=== PATIENT | female | born 1990 | race Caucasian/White ===

== ENCOUNTER → 2021-03-25 13:57 | Outpatient (CLI) | payer OTHER, SELFPAY ==
--- NOTE | ~2021-03-25 | US_ITS ---
EXAMINATION: US thyroid DATE: 03/25/2021 14:18 INDICATION: Nontoxic single thyroid nodule. TECHNIQUE: Multiple ultrasound images of the thyroid were obtained. COMPARISON: None. FINDINGS: The right thyroid lobe is absent The left thyroid lobe measures 4.5 x 1.4 x 1.9 cm. In the left thyr oid lobe, there is a 9 mm solid, hypoechoic, [id number] nodule with smooth margin without echoge darrell foci (TI-RADS TR4). IMPRESSION: 1. Small thyroid nodule, likely not clinically significant. No follow-up is needed. Reviewed, dictated and finalized at location A. IMPRESSION: 1. Small thyroid nodule, likely not clinically significant. No follow-up is nee ded.
== END ==
DX: E04.1 Nontoxic single thyroid nodule (principal)
CPT/HCPCS: 76536

== ENCOUNTER → 2023-01-24 10:12 | Outpatient (CLI) | payer OTHER, SELFPAY ==
--- NOTE | ~2023-01-24 | US_ITS ---
US thyroid INDICATION: Follow-up thyroid nodule TECHNIQUE: Real-time sonographic images of the thyroid gland were obtained. COMPARISON: Ultrasound dated 03/25/2021 FINDINGS: The right lobe is surgically absent. Left lobe measures 5.3 x 1.5 x 2 cm and contains an 8 mm hypoechoic mass which is wider distal, decreased in size compared with prior examination, solid, s moothly marginated, TR 4. IMPRESSION: 1. Stable left thyroid nodule measuring 8 mm, likely benign. No follow-up indicated. Reviewed, dictated and finalized at location L. IMPRESSION: 1. Stable left thyroid nodule measuring 8 mm, likely benign. No follow-up marc cated.
== END ==
DX: E04.1 Nontoxic single thyroid nodule (principal)
CPT/HCPCS: 76536

== ENCOUNTER 2023-06-22 14:03 | Observation (INO) | payer OTHER, SELFPAY ==
--- NOTE | ~2023-06-22 | CT_ITS ---
EXAMINATION: CT brain wo con INDICATION: Left-sided numbness COMPARISON: None TECHNIQUE: Standard unenhanced head CT. The dose-length product (DLP) was 681.00 mGy-cm. The mA was a djusted according to patient size. Iterative reconstruction technique was employed. FINDINGS: No intracranial hemorrhage or abnormal mass lesion. There is a subtle area of low-attenuati on of the left basal ganglia and possibly the adjacent midbrain The ventricles are normal. No abnorma l mass effect or midline shift. The basal cisterns are patent. The orbits are normal. The paranasal s inuses, mastoids and calvarium are normal. IMPRESSION: 1. Subtle area of low attenuation of the left basal ganglia and possibly the adjacent midbrain. Altho ugh infarction a patient this age is uncommon, it would be included in the differential. Reviewed, dictated and finalized at location F. ENT SAFETY ATTENDANT IMPRESSION: 1. Subtle area of low attenuation of the left basal ganglia and possibly the ad jacent midbrain. Although infarction a patient this age is uncommon, it would b e included in the differential.
--- NOTE | ~2023-06-22 | CT_ITS ---
EXAMINATION: CTA brain carotid DATE: 06/22/2023 20:03 INDICATION: Left-sided numbness TECHNIQUE: Computed tomographic angiography (CTA) of the head was performed without and with 100 mL O mnipaque-350 intravenous contrast. CTA of the neck was performed with intravenous contrast. The dose- length product was 1089.12 mGy-cm. Maximum intensity projection and volume rendered 3D-reconstruction s were created by the technologist on a separate workstation. Automated exposure control and iterativ e reconstruction technique were employed. COMPARISON: CT from today FINDINGS: HEAD CTA: There is no intracranial hemorrhage, acute infarction, or abnormal mass lesion. The area of low-attenuation of the left basal ganglia described on earlier CT corresponds to a prominent vascula r space. The ventricles are normal. There is no abnormal mass effect or midline shift. The tripathi-white matter differentiation is normal. The basal cisterns are patent. The orbits are normal. The paranasa l sinuses, mastoids and calvarium are normal. There is no significant stenosis of the basilar artery or posterior cerebral arteries. There is no si gnificant stenosis of the intracranial internal carotid arteries or the anterior or middle cerebral a rteries. The anterior communicating artery and posterior communicating arteries are normal. There is no aneurysm. NECK CTA: There appear to be changes of right thyroidectomy. The submandibular and parotid glands are symmetric. There is no lymphadenopathy. There are no masses identified. The airway is unremarkable. The superior mediastinum is unremarkable. There are no osseous abnormalities. There is 0% stenosis of the proximal right internal carotid artery relative to normal distal artery l umen diameter (NASCET criteria). There is 0% stenosis of the proximal left internal carotid artery re lative to normal distal artery lumen diameter. IMPRESSION: 1. No acute intracranial abnormality. Normal head CTA. 2. 0% stenosis of the proximal right internal carotid artery relative to normal distal artery lumen d iameter (NASCET criteria). 3. 0% stenosis of the proximal left internal carotid artery relative to normal distal artery lumen di ameter. Reviewed, dictated and finalized at location F. MATOR AND DRAFTER IMPRESSION: 1. No acute intracranial abnormality. Normal head CTA. 2. 0% stenosis of the proximal right internal carotid artery relative to normal distal artery lumen diameter (NASCET criteria). 3. 0% stenosis of the proximal left internal carotid artery relative to normal distal artery lumen diameter.
--- NOTE | ~2023-06-22 | US_ITS ---
EXAMINATION: US venous doppler [facility] DATE: 06/22/2023 19:03 INDICATION: Left lower limb pain TECHNIQUE: Rodríguez scale images without and with compression and Doppler images of the left lower extrem ity veins were obtained. COMPARISON: None FINDINGS: The left common femoral vein, profunda femoral vein, femoral vein, popliteal vein, peroneal trunk, posterior tibial veins, and greater saphenous vein are patent. IMPRESSION: 1. Patent left lower extremity veins. No evidence of deep venous thrombosis. Reviewed, dictated and finalized at location F. ICE CLINICAL MARKETER
--- NOTE | ~2023-06-22 | MR_ITS ---
EXAMINATION: MR brain/brain stem wo/w con DATE: 06/23/2023 12:17 INDICATION: Left-sided numbness. Abnormal head CT. TECHNIQUE: Magnetic resonance imaging (MRI) of the brain and brainstem was performed without intraven ous contrast. COMPARISON: Head CT 06/22/2023 FINDINGS: There is no intracranial hemorrhage, acute infarction, or abnormal intracranial mass lesion . The ventricles are normal in size. The paranasal sinuses are clear. The orbits are normal. The mast oid air cells are normal. IMPRESSION: 1. Normal brain. Reviewed, dictated and finalized at location E. LE UI DESIGNER IMPRESSION: 1. Normal brain.
--- NOTE | ~2023-06-22 | XR_ITS ---
EXAMINATION: XR lumbar spine 2-3V DATE: 06/22/2023 17:03 INDICATION: Low back pain TECHNIQUE: Anteroposterior and lateral views of the lumbar spine, and cone-down lateral view of the l umbosacral junction were obtained. COMPARISON: None. FINDINGS: Bone alignment is normal. There is no fracture. There is mild anterior wedging of multiple lower thoracic vertebral bodies, likely physiologic. The intervertebral disc spaces are maintained. IMPRESSION: 1. No acute osseous abnormality. Reviewed, dictated and finalized at location F. GHT BRAKEMAN
[2023-06-22 14:10] VITALS: BP 135/87; PULSE 96; RESP 16; TEMP 36.4; O2SAT 100
--- NOTE | 2023-06-22 17:09 | ED.GENADULT ---
HPI - General Adult General Chief complaint: Extremity Problem,Nontraumatic Stated complaint: pain LLE, moved to [facility] Time Seen by Provider: 06/22/23 15:29 History of Present Illness HPI narrative: Randi Mckenzie is a 33 y/o female with no PMHx -she arrives today with several vague complaints, she states that she has had pain to the back of her left thigh that started 6 days ago and pain has improved some but now has a weird sensation / pain difficult to describe to her left leg and the past two days she has had lower back pain. She has woken up with left hand numbness off and on and she has to shake it off. Today she woke up with some numbness to her lips and some to her tongue/ tolerating PO She states she is 1 worried that she has a blood clot in her left leg, and she feels upset because she has been having these weird numbness/ sensation changes to the left side of her body. SHe does have a PCP that she follows up wtih - she has been on medications off and on to help her sleep at night but has not taken anything recently Denies SOB/ chest pain/ abdominal pain/ no recent fall/ trauma No focal deficits on exam Related Data Allergies Allergy/AdvReac Type Severity Reaction Status Date / Time No Known Allergies Allergy Verified 06/22/23 19:42 Review of Systems Review of Systems: CONSTITUTIONAL: Denies fever, chills, or sweats. EYES: Denies visual changes, redness, or discharge. ENT: Denies rhinorrhea, congestion, sore throat, or otalgia. CARDIOVASCULAR: Denies chest pain, palpitations, or edema. RESPIRATORY: Denies cough or dyspnea. GASTROINTESTINAL: Denies abdominal pain, nausea, vomiting, or diarrhea. GENITOURINARY: Denies dysuria or hematuria. SKIN: Denies rash or itching. MUSCULOSKELETAL: reports mid low back pain that started 2 days ago / pain to the back of her left leg NEUROLOGIC: Denies headache, reports of some periodic numbness off and on to different areas of her body and more so on the left side of her body. denies dizziness, or weakness. PSYCHIATRIC: Denies anxiety or depression. [facility] Surgical History Surgical History H/O partial thyroidectomy Family History Family History Mother Thyroid disorder Grandparent Hypertension Cancer Diabetes mellitus Depression Anxiety Cerebrovascular accident Heart problem Social History Social History Smoking status: Never smoker Second hand tobacco smoke exposure: No Alcohol intake: current Substance use: never Substance use type: does not use Lack of Transportation: No Lack of Food: Never True Current Housing: I Have Housing Concerned About Future Housing: No Difficulty Paying Gas/Electric Bills: No Difficulty Paying for Meds: No Currently Unemployed: No Education: High School Diploma/GED Living arrangements: with family Occupation/Education: occupation Exam Narrative: GENERAL: Well-appearing, well-nourished, and in no acute distress. HEAD: Normocephalic, atraumatic. EYES: PERRLA and EOMI. ENT: Nares clear, no rhinorrhea or epistaxis. Mucous membranes moist. Oropharynx without tonsillar hypertrophy exudate or other lesions. NECK: Supple. No adenopathy or masses. No carotid bruits or JVD CHEST: Clear to auscultation. No respiratory distress. No wheezes rales or rhonchi HEART: Regular rate and rhythm. No murmur heard. Normal peripheral pulses. ABDOMEN: Soft, nontender, nondistended, normal active bowel sounds. EXTREMITIES: Normal range of motion. No edema. SKIN: Warm, dry, no rash. NEURO: No focal deficits. Alert and oriented x3. PSYCH: Normal mood and affect. Course Vital Signs Vital signs: Vital Signs Temperature 36.4 C 06/22/23 14:10 Pulse Rate 96 06/22/23 14:10 Respiratory Rate 16 06/22/23 14:10 Blood Pressure 135/87 06/22/23
[2023-06-22 18:45] LABS: Basophils Percent Auto 0.4 % (0.2-1.2); Eosinophils Absolute Auto 0.1 K/mm3 (0-0.3); Eosinophils Percent Auto 1.7 % (0-4.4); Hematocrit 42.3 % (37.0-47.0); Hemoglobin 13.4 g/dL (12.0-15.0); Immature Granulocyte Absolute 0.02 K/mm3 (0.00-0.031); Immature Granulocyte Percent A 0.3 % (0-0.5); Lymphocytes Absolute Auto 1.96 K/mm3 (0.9-3.2); Lymphocytes Percent Auto 25.8 % (18.3-44.2); Mean Corpuscular HGB Conc 31.7 g/dl (32-36); Mean Corpuscular Hemoglobin 30.3 pg (26-34); Mean Corpuscular Volume 95.7 fl (80-100); Mean Platelet Volume 9.3 fl (7.4-10.4); Monocytes Absolute Auto 0.5 K/mm3 (0.1-0.6); Monocytes Percent Auto 6.7 % (2.6-8.5); Neutrophils Percent Auto 65.1 % (45.5-73.1); Platelet Count Result 316 k/mm3 (150-375); Red Blood Count 4.42 M/mm3 (4.2-5.4); Red Cell Distribution Width 11.9 % (11.5-14.5); White Blood Count 7.6 K/mm3 (4.5-10.0)
[2023-06-22 18:56] LABS: Prothrombin Time 13.1 Seconds (11.1-14.7)
[2023-06-22 18:57] LABS: Partial Thromboplastin Time 28.2 SECONDS (22.3-36.8)
[2023-06-22 19:01] LABS: Anion Gap 8 mmol/L (8-16); Blood Urea Nitrogen 11 mg/dL (7-17); Calcium 9.6 mg/dL (8.4-10.2); Carbon Dioxide 27 mmol/L (22-30); Chloride 102 mmol/L (98-107); Estimated CRCL calculation 117 ml/min; Estimated Glomerular Filt Rate > 60; Glucose 93 mg/dL (65-110); Potassium 4.2 mmol/L (3.4-5.0); Sodium 137 mmol/L (137-145)
--- NOTE | 2023-06-22 19:08 | PC.NURSE ---
Assumed care of pt from MARITO Mitchell at this time.
--- NOTE | 2023-06-22 20:55 | PM.IMHP ---
H&P: HPI History of Present Illness Date/Time: 06/22/23 20:55 Chief Complaint: NUMBNESS Narrative: 33-year-old female with no significant past medical history, obesity, presents to the emergency room with numbness and tingling sensation around her mouth this is of 1 day duration has been her usual state of health prior to this denies any speech disturbance or visual disturbance no focal motor deficit no fevers no rigors no chills no nausea no vomiting no abdominal pain no diarrhea. Preliminary workup was significant for CT of the head with area of translucent density. Patient is been placed in observation for further evaluation management and treatment. EXAMINATION: CT brain wo con ? INDICATION: Left-sided numbness ? COMPARISON: None TECHNIQUE: Standard unenhanced head CT. The dose-length product (DLP) was 681.00 mGy-cm. The mA was adjusted according to patient size. Iterative reconstruction technique was employed. ? FINDINGS: No intracranial hemorrhage or abnormal mass lesion. There is a subtle area of low-attenuation of the left basal ganglia and possibly the adjacent midbrain The ventricles are normal. No abnormal mass effect or midline shift. The basal cisterns are patent. The orbits are normal. The paranasal sinuses, mastoids and calvarium are normal. ? IMPRESSION: 1. Subtle area of low attenuation of the left basal ganglia and possibly the adjacent midbrain. Although infarction a patient this age is uncommon, it would be included in the differential. EXAMINATION: CTA brain carotid DATE: 06/22/2023 20:03 INDICATION: Left-sided numbness TECHNIQUE: Computed tomographic angiography (CTA) of the head was performed without and with 100 mL Omnipaque-350 intravenous contrast. CTA of the neck was performed with intravenous contrast. The dose-length product was 1089.12 mGy-cm. Maximum intensity projection and volume rendered 3D-reconstructions were created by the technologist on a separate workstation. Automated exposure control and iterative reconstruction technique were employed. COMPARISON: CT from today FINDINGS: HEAD CTA: There is no intracranial hemorrhage, acute infarction, or abnormal mass lesion. The area of low-attenuation of the left basal ganglia described on earlier CT corresponds to a prominent vascular space. The ventricles are normal. There is no abnormal mass effect or midline shift. The tripathi-white matter differentiation is normal. The basal cisterns are patent. The orbits are normal. The paranasal sinuses, mastoids and calvarium are normal. There is no significant stenosis of the basilar artery or posterior cerebral arteries. There is no significant stenosis of the intracranial internal carotid arteries or the anterior or middle cerebral arteries. The anterior communicating artery and posterior communicating arteries are normal. There is no aneurysm. NECK CTA: There appear to be changes of right thyroidectomy. The submandibular and parotid glands are symmetric. There is no lymphadenopathy. There are no masses identified. The airway is unremarkable. The superior mediastinum is unremarkable. There are no osseous abnormalities. There is 0% stenosis of the proximal right internal carotid artery relative to normal distal artery lumen diameter (NASCET criteria). There is 0% stenosis of the proximal left internal carotid artery relative to normal distal artery lumen diameter. IMPRESSION: 1. No acute intracranial abnormality. Normal head CTA. 2. 0% stenosis of the proximal right internal carotid artery relative to normal distal artery lumen diameter (NASCET criteria). 3. 0% stenosis of the proximal left internal carotid artery relative to normal distal artery lumen diameter. Review of Systems Review of Systems: Known in around the mouth Constitutional: Constitutional: Denies chills, Denies fatigue, Denies fever(s), Denies malaise, Denies night sweats, Denies poor appetite and Denies weakness Eyes: Eyes: Denies change in
[2023-06-22 22:47] VITALS: BP 134/71; PULSE 87; RESP 20; TEMP 36.3; O2SAT 100
[2023-06-22 22:54] VITALS: BMI 40.4
--- NOTE | 2023-06-22 22:55 | ADMGEN ---
This patient, Randi Mckenzie, was admitted to 2 Medical Room 242-. Patient/family oriented to hospital policies and general routines including ID bracelet, bed and alarms, visiting hours, pain management, procedures, bathroom and other care routines, personal items, smoking policy, room service/diet, and visiting hours. Information on how to activate the Rapid Response Team has been discussed. Patient/Family are encouraged to report perceived risks to care and to ask questions if they do not understand what they are told or what they should do.
[2023-06-23] VITALS (8 sets, daily range): BP systolic 114–125; BP diastolic 52–82; PULSE 68–95; RESP 16–20; TEMP 36.1–36.3; O2SAT 99–100
--- NOTE | 2023-06-23 07:19 | PM.IMPN ---
Progress Note: A&P Assessment and Plan (1) Numbness and tingling: Code(s): R20.0 - Anesthesia of skin; R20.2 - Paresthesia of skin Status: Acute Assessment and Plan: -continue telemetry monitoring -up with assistance CTA of head and neck reviewed MRI of the brain is normal (2) Abnormal CT of brain: Code(s): R90.89 - Other abnormal findings on diagnostic imaging of central nervous system Status: Acute Assessment and Plan: MRI- reveals no intracranial hemorrhage, or acute infarction or abnormal intracranial mass lesion -patient will follow up with Neurology outpatient Subjective Date/time seen: 06/23/23 07:19 Interval history: ?33-year-old female with no significant past medical history, obesity, presents to the emergency room with numbness and tingling sensation around her mouth this is of 1 day duration has been her usual state of health prior to this denies any speech disturbance or visual disturbance no focal motor deficit no fevers no rigors no chills no nausea no vomiting no abdominal pain no diarrhea.? Preliminary workup was significant for CT of the head with area of translucent density.? Patient is been placed in observation for further evaluation management and treatment. Interval history: 06/23/2023 pt seen this a.m. she is awake lying in bed, family is by the bedside, she reports no overnight events of N/V, chest pain, fever or chills. Plan for MRI of brain this a.m. continue to monitor Review of Systems Review of Systems: All systems reviewed & are unremarkable except as noted in HPI and below Exam Narrative: General: A well-developed, nontoxic-appearing, female sitting up in bed. Family is by the bedside HEENT: PERRL, EOMI. Oral mucosa moist. Neck: Supple. No midline cervical tenderness. Respiratory: Respirations are non- labored and lungs are clear to auscultation bilaterally. Cardiovascular: Regular rate and rhythm with S1-S2. Gastrointestinal: Abdomen is soft, non-tender, and non-distended with positive bowel sounds. Skin: Warm and dry. No rash or lesions on limited exam. Extremities: No cyanosis, clubbing, or edema. Radial and pedal pulses intact. Neurological: Alert and oriented. Cranial nerves 2-12 are grossly intact. No gross focal deficits to casual conversation. Psychiatric: Pleasant and cooperative with normal mood and affect. Judgment and insight intact. Objective Data Vital Signs Vital Signs: Vital Signs - 24 hr 06/22/23 14:10 06/22/23 22:47 06/22/23 23:02 Temperature 97.6 F 97.3 F L Pulse Rate 96 87 Respiratory Rate 16 20 Blood Pressure 135/87 134/71 Pulse Oximetry 100 100 Oxygen Delivery Room Air Room Air 06/23/23 00:00 06/23/23 04:00 06/23/23 05:08 Temperature 96.9 F L Pulse Rate 69 76 68 Respiratory Rate 20 Blood Pressure 114/52 L Pulse Oximetry 99 Oxygen Delivery Intake/Output Intake/Output: Intake & Output 06/20/23 06/21/23 06/22/23 06/23/23 23:59 23:59 23:59 23:59 Intake Total 340 Output Total 200 200 Balance -200 140 Meds/Results Radiology Results: ITS Impressions Head CT 06/22/23 17:01 IMPRESSION: 1. Subtle area of low attenuation of the left basal ganglia and possibly the adjacent midbrain. Although infarction a patient this age is uncommon, it would be included in the differential. Lumbar Spine X-Ray 06/22/23 17:18 IMPRESSION: 1. No acute osseous abnormality. Venous Doppler Study 06/22/23 19:25 IMPRESSION: 1. Patent left lower extremity veins. No evidence of deep venous thrombosis. Head/Neck CTA 06/22/23 20:25 IMPRESSION: 1. No acute intracranial abnormality. Normal head CTA. 2. 0% stenosis of the proximal right internal carotid artery relative to normal distal artery lumen diameter (NASCET criteria). 3. 0% stenosis of the proximal left internal carotid artery relative to normal distal artery lumen diameter. ADDENDUM: 06/22/23
--- NOTE | 2023-06-23 09:24 | WPDNEURCNPN ---
Assessment and Plan Assessment and plan (1) Numbness and tingling: Code(s): R20.0 - Anesthesia of skin; R20.2 - Paresthesia of skin Status: Acute (2) Abnormal CT of brain: Code(s): R90.89 - Other abnormal findings on diagnostic imaging of central nervous system Status: Acute Plan Randi Mckenzie is a 33 year old female with no significant past medical history presenting for evaluation of numbness in various parts of her body. CT head showed areas of hypoattenuation in the brainstem, could be artifactual. Stroke would be unusual in her age without any other risk factors. Also considering demyelinating disease such as MS. MRI brain is negative for lesions. - Check Vitamin B12 level Consult date: 06/23/23 Reason for consult: Numbness HPI: Randi Mckenzie is a 33 year old female with no significant past medical history presenting for evaluation of numbness in various parts of her body. Patient initially started having pain in the back of her left thigh that started about a week ago, but now is having parasthesias in that leg, along with lower back pain. She has also had intermittent L hand numbness off and on over the past few days that she has woken up with. Yesterday she woke up with numbness to her lips and tongue. She was concerned about having a blood clot in her LLE so she presented to [facility] ED. Her CT head showed area of hypoattenuation in the left basal ganglia and possibly the adjacent midbrain. CTA brain/carotid was negative. She was subsequently admitted for MRI brain. Blood pressure has been in the 130s systolic. Lab work is unrevealing. MRI brain is normal. Review of Systems Review of Systems: All systems reviewed & are unremarkable except as noted in HPI and below PMFSH Surgical History Surgical History H/O partial thyroidectomy Family History Family History Mother Thyroid disorder Grandparent Hypertension Cancer Diabetes mellitus Depression Anxiety Cerebrovascular accident Heart problem Social History Social History Smoking status: Never smoker Second hand tobacco smoke exposure: No Alcohol intake: never Substance use: never Substance use type: does not use Do You Feel Safe in your Home?: Yes Lack of Transportation: No Lack of Food: Never True Current Housing: I Have Housing Concerned About Future Housing: No Difficulty Paying Gas/Electric Bills: No Difficulty Paying for Meds: No Currently Unemployed: No Education: Bachelor's Degree Difficulty w/ Childcare or Family Care: No Living arrangements: with family Occupation/Education: occupation Spiritual care concerns: No Meds Home Medications and Allergies Home Medications Medication Instructions Recorded Confirmed Type zolpidem 5 mg tablet (Ambien) 5 mg PO QHS #30 tabs 06/12/23 06/22/23 Rx Allergies Allergy/AdvReac Type Severity Reaction Status Date / Time No Known Allergies Allergy Verified 06/22/23 19:42 Vital Signs Vital Signs - 24 hr 06/22/23 14:10 06/22/23 22:47 06/22/23 23:02 Temperature 36.4 C 36.3 C L Pulse Rate 96 87 Respiratory Rate 16 20 Blood Pressure 135/87 134/71 Pulse Oximetry 100 100 Oxygen Delivery Room Air Room Air 06/23/23 00:00 06/23/23 04:00 06/23/23 05:08 Temperature 36.1 C L Pulse Rate 69 76 68 Respiratory Rate 20 Blood Pressure 114/52 L Pulse Oximetry 99 Oxygen Delivery 06/23/23 08:26 Temperature Pulse Rate Respiratory Rate Blood Pressure Pulse Oximetry Oxygen Delivery Room Air Exam Const: General: comfortable and no acute distress HENMT: Mouth: Yes moist mucous membranes Eyes: Pupils: Equal, round and reactive pupils present EOM: EOMs intact bilaterally Resp: Effort & Inspection: normal respiratory effort Skin: General s
[2023-06-23 10:41] LABS: SPREG INTERNAL CONTROL Positive; Serum Qual hCG Negative
[2023-06-23] MEDS: LORazepam INJ (*CRX) 2 MG/ML VIAL 0.5 MG IV PUSH (11:08)
[2023-06-23 11:24] LABS: Appearance Urine Clear (Clear); Bacteria Urine 1+ /hpf; Bilirubin Urine Negative (Negative); Blood Urine Negative (Negative); Color Urine Yellow (Yellow); Glucose Urine UA Negative (Negative); Ketones Urine 1+ mg/dL (Negative); Leukocyte Esterase Ur Negative LEU/UL (Negative); Mucus Urine Present /lpf; Nitrate Urine Negative (Negative); Non Pathogenic Casts 0-2; Protein Urine Trace mg/dL (Negative); RBC Urine 0-2 /hpf (0-2); Squamous Epithelial Cell Urine Occasional /hpf (Few); pH Urine 5.5 (5.0-9.0)
[2023-06-23 11:26] LABS: Specific Grav Ur 1.064 (1.001-1.035)
[2023-06-23 11:27] LABS: Add Urine Microscopic? YES
[2023-06-23 14:24] LABS: Folic Acid 9.6 ng/mL (2.76->20)
--- NOTE | 2023-06-23 17:45 | PM.DS ---
DS: Admitting Diagnosis Discharge Date 06/23/2023 Admitting Diagnosis anesthesia of skin abnormal CT of brain DS: Discharge Diagnosis Discharge Diagnosis (1) Abnormal CT of brain: Code(s): R90.89 - Other abnormal findings on diagnostic imaging of central nervous system Status: Acute Assessment and Plan: -continue follow up with neurology (2) Numbness and tingling: Code(s): R20.0 - Anesthesia of skin; R20.2 - Paresthesia of skin Status: Acute DS: Summary Hospital Course Reason for hospitalization: facial numbness and tingling sensation Hospital Course: ?33-year-old female with no significant past medical history, obesity, presents to the emergency room with numbness and tingling sensation around her mouth this is of 1 day duration has been her usual state of health prior to this denies any speech disturbance or visual disturbance no focal motor deficit no fevers no rigors no chills no nausea no vomiting no abdominal pain no diarrhea.? Preliminary workup was significant for CT of the head with area of translucent density.? Patient is been placed in observation for further evaluation management and treatment. Interval Hx: pt was evaluated by neurology please see HPI below Consult date: 06/23/23 Reason for consult: Numbness HPI: Randi Mckenzie is a 33 year old female with no significant past medical history presenting for evaluation of numbness in various parts of her body. Patient initially started having pain in the back of her left thigh that started about a week ago, but now is having paraesthesias in that leg, along with lower back pain. She has also had intermittent L hand numbness off and on over the past few days that she has woken up with. Yesterday she woke up with numbness to her lips and tongue. She was concerned about having a blood clot in her LLE so she presented to [facility] ED. Her CT head showed area of hypoattenuation in the left basal ganglia and possibly the adjacent midbrain. CTA brain/carotid was negative. She was subsequently admitted for MRI brain. Blood pressure has been in the 130s systolic. Lab work is unrevealing. MRI brain is normal. Status at Discharge Functional status at discharge: independent ambulation Overall status at discharge: patient is progressing back to baseline Time Spent with Patient Time attestation: Total time spent providing and/or coordinating discharge services: Time spent: Less than 30 minutes Exam Narrative: General: A well-developed, nontoxic-appearing, female sitting up in bed. Family is by the bedside HEENT: PERRL, EOMI. Oral mucosa moist. Neck: Supple. No midline cervical tenderness. Respiratory: Respirations are non- labored and lungs are clear to auscultation bilaterally. Cardiovascular: Regular rate and rhythm with S1-S2. Gastrointestinal: Abdomen is soft, non-tender, and non-distended with positive bowel sounds. Skin: Warm and dry. No rash or lesions on limited exam. Extremities: No cyanosis, clubbing, or edema. Radial and pedal pulses intact. Neurological: Alert and oriented. Cranial nerves 2-12 are grossly intact. No gross focal deficits to casual conversation. Psychiatric: Pleasant and cooperative with normal mood and affect. Judgment and insight intact. DS: Data Data Completed and Pending Completed studies during hospitalization: Brain MRI: FINDINGS: There is no intracranial hemorrhage, acute infarction, or abnormal intracranial mass lesion. The ventricles are normal in size. The paranasal sinuses are clear. The orbits are normal. The mastoid air cells are normal. IMPRESSION: 1. Normal brain. CT Brain: IMPRESSION: 1. No acute intracranial abnormality. Normal head CTA. 2. 0% stenosis of the proximal right internal carotid artery relative to normal distal artery lumen diameter (NASCET criteria). 3. 0% stenosis of the proximal left internal carotid artery relative to normal distal artery lumen diameter. Veno
== END 2023-06-23 18:30 | disposition home or self-care (01) ==
LOC: ANHED 21:09 → ANH2MED 06-23 08:56
PROVIDERS: Student in an Organized Health Care Education/Training Program; Admitting Provider Internal Medicine; Emergency Provider Nurse Practitioner Family; PCP Family Medicine; Visit Provider Nurse Practitioner
DX: R90.89 Other abnormal findings on diagnostic imaging of central nervous system (principal); R20.0 Anesthesia of skin; R20.2 Paresthesia of skin; M79.605 Pain in left leg; M54.50 Low back pain, unspecified; F10.90 Alcohol use, unspecified, uncomplicated; Z82.3 Family history of stroke; Z79.899 Other long term (current) drug therapy
CPT/HCPCS: 36415; 70450; 70496; 70498; 70553; 72100; 80048; 81001; 82607; 82746; 84443; 84703; 85025; 85610; 85730; 87086; 87088; 93971; 96374; 99285; A9577; G0378; J2060; Q9967

== ENCOUNTER 2023-09-12 09:20 | Outpatient (CLI) | payer OTHER, SELFPAY ==
--- NOTE | 2023-09-20 17:49 | WPDHOMESLEEP ---
Sleep Study - Home Unattended Date of Study: 09/12/23 Ordering Provider: Beckie Castle DO Interpreting Provider: Beckie Castle DO Home Sleep Study Type: Watch PAT Height: 1.7 m Weight: 108.862 kg Body Mass Index: 37.5 Neck Circumference (inches): 14 [place]: 0 Reason for Sleep Study Difficulty staying asleep Sleep History The patient is a 33-year-old female that had a sleep study ordered for evaluation of insomnia. She occasionally awakens from sleep short of breath. She frequently awakens at night with heartburn, belching or cough. She occasionally snores but it is rarely loud enough that others complain. She denies grinding her teeth during sleep. She is occasionally bothered by pain during the day and occasionally awakened by pain during the night. She occasionally wakes up feeling stiff in the morning. She occasionally wakes up with sore or achy muscles. She occasionally wakes up with pain in the neck, spine and other joints. She goes to bed between 10 to 10:30 p.m. on weekdays and at midnight on the weekends. It takes her 30-45 minutes to fall asleep with a sleeping aid. She wakes up 2-3 times throughout the night to urinate and is able to fall back asleep within 5-10 minutes. She wakes up at 7:30 a.m. on weekdays and 8:30 a.m. on the weekends. He typically gets 5 hours of sleep per night. She will stay in bed for 15-30 minutes after waking up in the morning. She currently lives with her boyfriend part-time. She denies consuming any caffeinated beverages within 2 hours of bedtime. She denies engaging in physical exercise before bedtime. She will occasionally read before falling asleep. Her television will be on but she will not actively be watching TV prior to falling asleep. She denies taking naps in the afternoon or the evening. She consumes 1-2 caffeinated beverages per day. She will consume alcoholic beverages on the weekends. She denies tobacco and recreational drug use. [facility] Surgical History Surgical History H/O partial thyroidectomy Family History Family History Mother Thyroid disorder Grandparent Hypertension Cancer Diabetes mellitus Depression Anxiety Cerebrovascular accident Heart problem Social History Social History Smoking status: Never smoker Second hand tobacco smoke exposure: No Alcohol intake: never Substance use: never Substance use type: does not use Do You Feel Safe in your Home?: Yes Lack of Transportation: No Lack of Food: Never True Current Housing: I Have Housing Concerned About Future Housing: No Difficulty Paying Gas/Electric Bills: No Difficulty Paying for Meds: No Currently Unemployed: No Education: Bachelor's Degree Difficulty w/ Childcare or Family Care: No Living arrangements: with family Occupation/Education: occupation Spiritual care concerns: No Agree to blood products: Yes Medications Home Medications Medication Instructions Recorded Confirmed Type mecobalamin (vitamin B12) 1,000 3,000 mcg PO DAILY 07/20/23 07/20/23 History mcg chewable tablet zolpidem 10 mg tablet 10 mg PO QHS #30 tabs 09/12/23 Rx Sleep Procedure The sleep study was completed using WAYNT a technically adequate device with seven channels: peripheral arterial tone, actigraphy, body position, snore, respiratory movement, pulse oximetry, sleep staging, and heart rate. Prior to using the device, the patient received verbal and written instructions for its application and was provided with the help desk phone number for additional telephonic instruction with 24-hour availability of qualified personnel to answer questions.? The study was scored using CMS guidelines.? Sleep Architecture The total recording time is 8 hrs, 40 min. The total sleep time
[2023-09-20 17:57] VITALS: BMI 37.5
== END 2023-09-13 07:30 | disposition home or self-care (01) ==
LOC: ANHCSM 09:21
PROVIDERS: PCP Family Medicine; Visit Provider Family Medicine
DX: G47.00 Insomnia, unspecified (principal)
CPT/HCPCS: 95800

== ENCOUNTER 2024-04-16 08:56 | Outpatient (CLI) | payer OTHER, SELFPAY ==
--- NOTE | 2024-04-16 11:30 | NEURO_ITS ---
Impression: # Complains of numbness of hands. Non-diabetic. # Normal Nerve Conduction Study. No Carpal Tunnel Syndrome or ulnar neuropathy. # Normal needle/EMG exam. # Clinical correlation recommended. Nerve Conduction Studies Anti Sensory Summary Table Stim Site NR Peak (ms) P-T Amp (?V) Site1 Site2 Delta-P (ms) Dist (cm) Maciel (m/s) Left Median Anti Sensory (2-3nd Digit) Wrist 2.4 89.3 Wrist 2-3nd Digit 2.4 14.0 58 Wrist 2.5 76.7 Wrist 2-3nd Digit 2.4 14.0 58 Right Median Anti Sensory (2-3nd Digit) Wrist 2.4 86.0 Wrist 2-3nd Digit 2.4 14.0 58 Wrist 2.3 95.4 Wrist 2-3nd Digit 2.4 14.0 58 Left Radial Anti Sensory (Base 1st Digit) Wrist 1.8 30.5 Wrist Base 1st Digit 1.8 0.0 Right Radial Anti Sensory (Base 1st Digit) Wrist 1.8 33.9 Wrist Base 1st Digit 1.8 0.0 Left Ulnar Anti Sensory (5th Digit) Wrist 2.2 95.4 Wrist 5th Digit 2.2 14.0 64 Right Ulnar Anti Sensory (5th Digit) Wrist 2.0 73.2 Wrist 5th Digit 2.0 14.0 70 Motor Summary Table Stim Site NR Onset (ms) O-P Amp (mV) Site1 Site2 Delta-0 (ms) Dist (cm) Maciel (m/s) Left Median Motor (Abd Poll Brev) Wrist 3.2 5.5 Elbow Wrist 4.3 26.0 60 Elbow 7.5 4.8 Right Median Motor (Abd Poll Brev) Wrist 3.0 4.2 Elbow Wrist 4.6 29.0 63 Elbow 7.6 3.1 Left Ulnar Motor (Abd Dig Minimi) Wrist 2.1 6.6 A Elbow Wrist 4.8 30.0 62 A Elbow 6.9 5.6 Right Ulnar Motor (Abd Dig Minimi) Wrist 2.1 7.1 A Elbow Wrist 5.0 30.0 60 A Elbow 7.1 6.0 F Wave Studies NR F-Lat (ms) L-R F-Lat (ms) Left Median (Mrkrs) (Abd Poll Brev) 25.49 0.77 Right Median (Mrkrs) (Abd Poll Brev) 26.26 0.77 Left Ulnar (Mrkrs) (Abd Dig Min) 25.73 0.29 Right Ulnar (Mrkrs) (Abd Dig Min) 25.44 0.29 EMG Side Muscle Nerve Root Ins Act Fibs Amp Dur Recrt Comment Right 1stDorInt Ulnar C8-T1 Nml Nml Nml Nml Nml Right Ext Indicis Radial (Post Int) C7-8 Nml Nml Nml Nml Nml Right Ext Digitorum Radial (Post Int) C7-8 Nml Nml Nml Nml Nml Right BrachioRad Radial C5-6 Nml Nml Nml Nml Nml Right PronatorTeres Median C6-7 Nml Nml Nml Nml Nml Right Abd Poll Brev Median C8-T1 Nml Nml Nml Nml Nml Right ABD Dig Min Ulnar C8-T1 Nml Nml Nml Nml Nml Left 1stDorInt Ulnar C8-T1 Nml Nml Nml Nml Nml Left Ext Indicis Radial (Post Int) C7-8 Nml Nml Nml Nml Nml Left Ext Digitorum Radial (Post Int) C7-8 Nml Nml Nml Nml Nml Left BrachioRad Radial C5-6 Nml Nml Nml Nml Nml Left PronatorTeres Median C6-7 Nml Nml Nml Nml Nml Left Abd Poll Brev Median C8-T1 Nml Nml Nml Nml Nml Left ABD Dig Min Ulnar C8-T1 Nml Nml Nml Nml Nml MTDD
== END 2024-04-16 08:57 | disposition home or self-care (01) ==
LOC: ANHNEURO 08:56
PROVIDERS: PCP Family Medicine; Visit Provider Psychiatry & Neurology Neurology
DX: R20.0 Anesthesia of skin (principal); R20.2 Paresthesia of skin
CPT/HCPCS: 95886; 95911